=== PATIENT | female | born 1965 | race Caucasian/White ===

== ENCOUNTER 2017-05-10 00:06 | Emergency (ER) | payer SELFPAY ==
[~2017-05-10] VITALS: Ht 152.4 cm; Wt 70.0 kg
[~2017-05-10 00:06] MED LIST: GLUCTAB PO; LISI10 PO
[2017-05-10 00:12] VITALS: BP 143/80; PULSE 77; RESP 18; TEMP 98.3; O2SAT 97
[2017-05-10] MEDS ORDERED: CYCL5TAB PO (00:23)
[2017-05-10] MEDS ORDERED: CYCL1TAB29 PO (00:38)
[2017-05-10] MEDS ORDERED: PRED20 PO (00:38)
[2017-05-10] MEDS ORDERED: MOBI15TA PO (00:38)
--- NOTE | 2017-05-10 00:39 | PD ---
HPI Chief Complaint: Fall Time Seen by Provider: 00:14 Travel History International Travel<30 days: No Contact w/Intl Traveler<30days: No Traveled to known affect area: No History of Present Illness HPI 51-year-old female complains of low back pain. Patient states that she has history of chronic recurrent low back pain and has been taking Percocet for pain. Patient states that she fell 2 days ago and struck her low back against a ladder. Patient states that she has increasing pain since then. Patient states the pain is sharp pain, started on the low back area with radiation to the right leg. Patient denies any headache. Patient denies any neck pain. Patient denies any chest pain or shortness of breath. Patient denies abdominal pain. Patient denies any focal weakness or numbness of the extremity. Patient denies any problem with bowel or bladder control. PFSH Past Medical History Diabetes: Yes Diminished Hearing: No GERD: Yes Hypertension: Yes Musculoskeletal: Yes (CHRONIC KNEE AND BACK PAIN) Immunizations Current: No Tetanus Vaccination: Unknown Influenza Vaccination: No ?: Not LMP: MENOPAUSE Menopausal: Yes Ovarian Cysts: Yes Tubal Ligation: Yes Past Surgical History Section: Yes (X TWO) Gynecologic Surgery: Yes (OOPHORECTOMY) Social History Alcohol Use: No Tobacco Use: No (QUIT 11 YRS AGO) Substance Use: No Allergies-Medications (Allergen,Severity, Reaction): Coded Allergies: No Known Allergies (Unverified , 05/10/17) Reported Meds & Prescriptions Reported Meds & Active Scripts Active Prednisone 20 Mg Tab 20 Mg PO DAILY Flexeril (Cyclobenzaprine HCl) 10 Mg Tab 10 Mg PO TID Mobic (Meloxicam) 15 Mg Tab 15 Mg PO DAILY Reported Flexeril (Cyclobenzaprine HCl) 5 Mg Tab 5 Mg PO TID Review of Systems General / Constitutional: No: Fever Eyes: No: Visual changes HENT: No: Headaches Cardiovascular: No: Chest Pain or Discomfort Respiratory: No: Shortness of Breath Gastrointestinal: No: Abdominal Pain Genitourinary: No: Dysuria Musculoskeletal: No: Pain Skin: No Rash Neurologic: No: Weakness Psychiatric: No: Depression Endocrine: No: Polydipsia Hematologic/Lymphatic: No: Easy Bruising Physical Exam Narrative GENERAL: Well-nourished, well-developed patient. SKIN: Focused skin assessment warm/dry. HEAD: Normocephalic. EYES: No scleral icterus. No injection or drainage. NECK: Supple, trachea midline. No JVD or lymphadenopathy. CARDIOVASCULAR: Regular rate and rhythm without murmurs, gallops, or rubs. RESPIRATORY: Breath sounds equal bilaterally. No accessory muscle use. GASTROINTESTINAL: Abdomen soft, non-tender, nondistended. MUSCULOSKELETAL: No cyanosis, or edema. BACK: Patient has moderate tenderness on palpation lower lumbar area, without obvious deformity. No CVA tenderness. Positive straight leg raising right leg. Neurologic exam normal. Data Data Last Documented VS Vital Signs Date Time Temp Pulse Resp B/P (MAP) Pulse Ox O2 Delivery O2 Flow Rate FiO2 05/10/17 00:12 98.3 77 18 143/80 (101) 97 Orders Orders Spine, Lumbar - Ltd (Ap & Lat) (05/10/17 00:31) Pelvis, Ap Only (Routine) (05/10/17 00:31) Ketorolac Inj (Toradol Inj) (05/10/17 01:15) Orphenadrine Inj (Norflex Inj) (05/10/17 01:15) MDM Medical Decision Making Medical Screen Exam Complete: Yes Emergency Medical Condition: Yes Interpretation(s) X-ray of pelvis and lumbar spine shows no acute bony injury. Differential Diagnosis Differential diagnosis including acute exacerbation chronic back pain, fracture , HNP. Narrative Course 51-year-old female with low back pain. History of chronic back pain. Patient fell and struck back against the ladder 2 days ago. Toradol 60 mg IM. Norflex 60 mg IM. Diagnosis Primary Impression: Acute exacerbation of chronic low back pain Patient Instructions: General Instructions Additional Instructions: Take medications as directed. Follow-up with personal physician and orthopedist. Med/Other Pt SpecificInfo: Prescription(s) given Scripts Prednisone (Prednisone) 20 Mg Tab 20 MG PO DAILY, #7 TAB 0 Refills Prov: Arnold Machado MD 05/10/17 Cyclobenzaprine (Flexeril) 10 Mg Tab 10 MG PO TID for Muscle Spasm, #90 TAB 0 Refills Prov: Arnold Machado MD 05/10/17 Meloxicam (Mobic) 15 Mg Tab 15 MG PO DAILY for Pain, #30 TAB 0 Refills Prov: Arnold Machado MD 05/10/17 Disposition: 01 DISCHARGE HOME Condition: Stable Arnold Machado MD May 10, 2017 00:38
--- NOTE | 2017-05-10 01:02 | RADRPT ---
EXAM DATE/TIME: 05/10/2017 00:39 [facility] COMPARISON: No previous studies available for comparison. INDICATIONS : Trauma to pelvis after patient fell from a ladder 2 days ago MEDICAL HISTORY : None. SURGICAL HISTORY : None. ENCOUNTER: Initial ACUITY: 2 days PAIN SCORE: 5/10 LOCATION: Right hip and pelvis FINDINGS: A single frontal view of the pelvis demonstrates no evidence of fracture. The bony pelvic ring is in tact. Bony mineralization is normal. The soft tissues are intact. CONCLUSION: 1. No acute fracture or dislocation. Otilio Gamboa MD on May 10, 2017 at 0:59 Board Certified Radiologist. This report was verified electronically.
--- NOTE | 2017-05-10 01:03 | RADRPT ---
EXAM DATE/TIME: 05/10/2017 00:42 [facility] COMPARISON: No previous studies available for comparison. INDICATIONS : Lower back pain after patient fell from a ladder 2 days ago MEDICAL HISTORY : None. SURGICAL HISTORY : None. ENCOUNTER: Initial ACUITY: 2 days PAIN SCORE: 10/10 LOCATION: Lumbar spine FINDINGS: Two view examination was performed. There are five non-rib bearing vertebral bodies. The vertebral bodies are in normal alignment without evidence of subluxation or scoliosis. The disc spaces are andreas ntained. The pedicles are intact. Bony mineralization is normal. No fracture is identified. CONCLUSION: 1. No acute fracture or subluxation. Otilio Gamboa MD on May 10, 2017 at 1:00 Board Certified Radiologist. This report was verified electronically.
[2017-05-10] MEDS ORDERED: KETOROLAC TROMETHAMINE 60 MG/2 ML (IM) VIAL IM ONE (01:15)
[2017-05-10] MEDS ORDERED: ORPHENADRINE INJ 60 MG/2 ML AMP IM ONE (01:15)
== END 2017-05-10 01:36 | disposition home or self-care (01) ==
LOC: PHED 00:06
DX: M54.5 Low back pain (principal); E11.9 Type 2 diabetes mellitus without complications; I10 Essential (primary) hypertension; K21.9 Gastro-esophageal reflux disease without esophagitis; Z87.891 Personal history of nicotine dependence; W18.30XA Fall on same level, unspecified, initial encounter; Y99.8 Other external cause status
CPT/HCPCS: 72100; 72170; 96372; 99284; J1885; J2360